=== PATIENT | male | born 1990 | race Caucasian/White ===

== ENCOUNTER 2017-01-27 02:44 | Emergency (ER) | payer OTHER | END 2017-01-27 04:08 | disposition other institution (70) | LOC: ED 02:44 | DX: Z02.89 Encounter for other administrative examinations (principal); A64 Unspecified sexually transmitted disease; R30.0 Dysuria; J44.9 Chronic obstructive pulmonary disease, unspecified; Z88.0 Allergy status to penicillin; Z88.5 Allergy status to narcotic agent ==

== ENCOUNTER 2017-01-27 02:44 | Emergency (ER) | payer SELFPAY ==
[2017-01-27 04:08] VITALS: BP 119/79
== END 2017-01-27 04:08 | disposition other institution (70) ==
LOC: ED 02:44
DX: A64 Unspecified sexually transmitted disease (principal); R30.0 Dysuria; J44.9 Chronic obstructive pulmonary disease, unspecified; Z88.0 Allergy status to penicillin; Z88.5 Allergy status to narcotic agent
CPT/HCPCS: 87491; 87591; J0696

== ENCOUNTER 2018-01-04 03:39 | Emergency (ER) | payer MEDICAID ==
[~2018-01-04] VITALS: Ht 177.8 cm; Wt 74.8 kg
[2018-01-04 03:44] VITALS: Ht 177.8 cm; Wt 74.8 kg
[2018-01-04 06:20] VITALS: BP 116/71
== END 2018-01-04 06:20 | disposition home or self-care (01) ==
LOC: ED 03:39
DX: H92.01 Otalgia, right ear (principal); J44.9 Chronic obstructive pulmonary disease, unspecified; Z88.0 Allergy status to penicillin; Z88.5 Allergy status to narcotic agent
CPT/HCPCS: 87491; 87591; J0696